=== PATIENT | male | born 1995 | race Caucasian/White ===

== ENCOUNTER 2025-05-04 15:29 | Outpatient (REF) | payer OTHER, SELFPAY ==
[2025-05-04 16:21] LABS: MANUAL DIFF FLAG NO
[2025-05-04 17:16] LABS: Hematocrit 43.2 % (42.0-52.0); Hemoglobin 14.7 g/dl (14.0-18.0); Imm Gran Abs Auto 0.02 X10*3/uL (0.00-0.03); Imm Gran Pct Auto 0.2 % (0.0-0.4); Lymphocytes Absolute Auto 2.5 X10*3/uL (1.2-4.9); Mean Corpuscular HGB Conc 34.0 g/dl (31.0-36.0); Mean Corpuscular Hemoglobin 31.0 pg (27.0-33.0); Mean Corpuscular Volume 91.1 fL (80.0-98.0); NRBC Abs Auto 0.000 X10*3/uL (0.0-0.012); NRBC Pct Auto 0.0 /100WBC (0.0-0.2); Platelet Count 239 X10*3/uL (160-400); Red Blood Count 4.74 X10*6/uL (4.60-5.80); White Blood Count 8.3 X10*3/uL (4.8-10.8)
[2025-05-04 17:47] LABS: Alanine Aminotransferase 31 U/L (0-40); Albumin Level 4.8 g/dL (3.5-5.0); Alkaline Phosphatase 63 U/L (39-117); Anion Gap 9 (12-20); Aspartate Amino Transferase 33 U/L (5-37); Blood Urea Nitrogen 12 mg/dL (9-16); Calcium 9.6 mg/dL (8.4-10.2); Carbon Dioxide 28 mmol/L (22-29); Chloride 107 mmol/L (96-108); Cholesterol 178 mg/dL (<200); Estimated Glomerular Filt Rate > 60; HDL Cholesterol 51 mg/dL (>40); Potassium 4.0 mmol/L (3.3-5.1); Sodium 140 mmol/L (135-145); Total Protein 7.5 g/dL (6.5-8.0); Triglycerides 160 mg/dL (<150)
[2025-05-05 05:33] LABS: Syphilis Screen Nonreactive (Nonreactive)
[2025-05-05 06:33] LABS: HBS Num1 4.02 mIU/mL (0-7.99); HBc Num1 0.07 S/CO (0.00-0.79); HBsAGNum1 0.36 S/CO (0.00-0.99); HIV Num 1 0.06 S/CO (0.00-0.99); Hepatitis A Antibody IgM 0.18 Index (0-0.79); Hepatitis B Surface Antigen Negative (Negative); ~HepC Num1 0.11 S/CO (0.00-0.79); ~Hepatitis A Antibody IgM Nonreactive (Nonreactive); ~Hepatitis B Surface Antibody NONREACTIVE (Nonreactive); ~Hepatitis C Antibody Nonreactive (Nonreactive)
== END 2025-05-04 15:30 | disposition home or self-care (01) ==
LOC: HO.LAB 15:29
PROVIDERS: PCP Student in an Organized Health Care Education/Training Program; Visit Provider Student in an Organized Health Care Education/Training Program
DX: Z00.00 Encounter for general adult medical examination without abnormal findings (principal); K13.79 Other lesions of oral mucosa; F10.10 Alcohol abuse, uncomplicated; Z87.891 Personal history of nicotine dependence
CPT/HCPCS: 36415; 80053; 80061; 82306; 82570; 83036; 84443; 85025; 86704; 86706; 86709; 86780; 86803; 87340; 87389; 96127; 99385

== ENCOUNTER 2025-05-04 15:29 | Outpatient (AMB) | payer OTHER, SELFPAY ==
--- NOTE | 2025-05-04 08:08 | A.OFFPC_ITS ---
Vital Signs 05/04/25 15:41 Height 6 ft 1.5 in Weight 217 lb 2 oz BMI 28.3 BP 128/80 Blood Pressure Location Lt brachial Position Sitting Pulse 85 Pulse Source Pulse Oximeter Temp 97.4 F Temp Source Temporal Artery Scan Pulse Oximetry (%) 98 Oxygen Delivery Method Room Air Intake Visit Reasons: Establish care Accompanied by: Self / Same As Patient Allergies No Known Allergies Allergy (Verified 05/04/25 08:09) Medication List - Last Reconciled 05/04/25 by Tucker Gilbert MD No Known Home Meds Tobacco use date assessed: 05/04/25 Dental Screening Dental Screen Date: 05/04/25 Did you have a dental visit in the last 12 months?: No Did you have a dental problem in the last 6 months where you did not have access to dental care?: No HPI HPI Comments History of Present Illness Details The patient is a 29 year old male presenting for an annual physical examination. 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 The patient reports a history of recurrent oral ulcers that have been present for a few years. He had a biopsy previously which was reported as a bad ulcer, possibly caused by stress, but the issue persists and he currently has an active lesion. He has seen multiple dentists in the past without resolution. The patient reports no significant past medical conditions or surgeries. He reports recent weight gain of approximately 15 pounds, which he attributes to drinking. He reports being physically active, primarily through walking several miles while fly fishing. The patient reports smoking marijuana and vaping when he consumes alcohol. He drinks 5 to 10 alcoholic beverages on weekends and acknowledges he needs to reduce his intake. He has a history of smoking and chewing tobacco when he was younger. He is currently unemployed but previously worked in construction and is experiencing stress related to changing careers. Medical History: - Recurrent oral ulcers, status post bio psy with non-specific findings. - Seasonal allergies Surgical History: - No history of surgeries. Medications: - Claritin or generic equivalent as need ed for seasonal allergies. Family History: - No known family history of diabetes, c ancers, or heart disease. Social History: - Employment: The patient is currently u nemployed and seeking a career change. He previously worked in construction. - Substance Use: He reports smoking surekha thomas and vaping when drinking alcohol. - Alcohol Use: He reports drinking 5-10 alcoholic beverages on weekends. - Tobacco Use: The patient has a history of smoking tobacco and using chewing tobacco in the past. - Illicit Drug Use: He denies the use of heroin or cocaine. - Relationship Status: The patient is no t . - Sexual Activity: The patient reports h e has not been sexually active for the past 4-5 months. - Exercise: He stays active by [employer], which involves walking several miles. - Stress: He reports stress related to h is career change and unemployment. [facility] Medical History (Updated 05/04/25 @ 16:02 by Tucker Gilbert MD) Alcohol abuse Recurrent oral ulcers Annual physical exam Family History (Updated 05/04/25 @ 15:47 by Diamond Whitley MA) Mother No problems noted. Father No problems noted. Social History Housing: House Patient Tobacco Use Status: Former Tobacco user e-Cigarette/Vaping Use: Former Use service: No Current occupational status: unemployed Cognitive needs: No Hearing needs: No Vision needs: No Questionnaire PHQ-9 Over the last 2 weeks, how often have you been bothered by any of the following problems? 1. Little interest or pleasure in doing things: not at all 2. Feeling down, depressed, or hopeless: not at all 3. Trouble falling or staying asleep, or sleeping too much: not at all 4. Feeling tired or having little energy: not at all 5. Poor appetite or overeating: not at all 6. Feeling bad about yourself - or that you are a failure or have let yourself or your family down: not at all 7. Trouble concentrating on things, such as reading the newspaper or watching television: not at all 8. Moving or speaking so slowly that other people could have noticed. Or the opposite - being so fidgety or restless that you have been moving around a lot more than usual: not at all 9. Thoughts that you would be better off or of hurting yourself in some way: not at all Total score: 0 Depression Screening Interpretation: Negative Depression Screening Done: Yes 16386 - PHQ-9 Billing: Yes Source: Developed by Drs. Carlos Helm, Namrata Pink, Kirit Blanchard and colleagues, with an educational bernard from [employer]. Thrive Questionnaire Date Thrive assessed: 05/04/25 I am a: Patient What is your living situation today?: I have a steady place to live Within the past 12 months, did the food you bought not last and you didn't have the money to get more?: Never true Within the past 12 months, did you worry whether your food would run out before you got money to buy more?: Never true Do you have trouble paying for medicines?: No Do you have trouble getting transportation to medical appointments?: No Do you have trouble paying your heating and electricity bill?: No Do you have trouble taking care of your child, family member or friend?: No Do you have trouble with day-to-day activities such as bathing, preparing meals, shopping, managing finances, etc.?: No Are you currently unemployed and looking for a job?: No Are you interested in more education?: No THRIVE Score: 0 AUDIT C Alcohol Use Questionnaire (AUDIT-C) 1. How often do you have a drink containing alcohol?: 2-4 times a month 2. How many drinks containing alcohol do you have on a typical day when you are drinking?: 10 or more 3. How often do you have six or more drinks on one occasion?: Weekly Total Score: 9 Score Reviewed/Action Taken: Yes NADER-7 AMB Questionnaire NADER-7 Date NADER - 7 assessed: 05/04/25 Feeling nervous, anxious, or on edge: 0 = Not at all Not being able to stop or control worryin = Not at all Worrying too much about different things: 0 = Not at all Trouble relaxin = Not at all Being so restless that it is hard to sit still: 0 = Not at all Becoming easily annoyed or irritable: 0 = Not at all Feeling afraid as if something awful might happen: 0 = Not at all Total NADER-7 score (0-4 normal; 5-9 mild; 10-14 moderate; 15-21 severe): 0 Source: Developed by Drs. Carlos Helm, Namrtaa Pink, Kirit Blanchard and colleagues, with an educational bernard from [employer]. NADER-7 Assessment Billing NADER-7 Assessment Tool: NADER-7 Assessment 24922 Review of Systems Narrative - General: Reports a 15-pound weight gain. - HEENT: Reports a history of recurrent oral ulcers. Denies vision changes. - Cardiovascular: Denies chest pain or palpitations. - Respiratory: Denies cough or shortness of breath. - Gastrointestinal: Reports no issues with bowel movements. - Genitourinary: Reports no issues with urination. - Neurological: Denies headaches. - Psychiatric: Reports good mood but notes stress related to life changes. - Allergic/Immunologic: Reports seasonal allergies. All systems reviewed & are unremarkable except as reviewed in HPI and above Physical exam (Primary Care) Vital Signs: Last Vital Signs Temp 97.4 F 05/04/25 15:41 Pulse 85 05/04/25 15:41 BP 128/80 05/04/25 15:41 Pulse Ox 98 05/04/25 15:41 Oxygen Delivery Method Room Air 05/04/25 15:41 BMI result Body Mass Index 28.3 Tobacco/Smoking Status: Tobacco use Status Tobacco use date assessed 05/04/25 05/04/25 08:10 Patient Tobacco Use Status Former Tobacco user 05/04/25 15:47 e-Cigarette/Vaping Use Former Use 05/04/25 15:47 PHQ-9: PHQ-9 Score PHQ-9: Total score 0 05/04/25 15:56 Depression Screening Interpretation: Negative Thrive Assessment: Date of Thrive Assessment Date Thrive assessed 05/04/25 05/04/25 08:10 Narrative General: +Alert and oriented, Well nourished, No acute distress. Eye: Pupils are equal, round and reactive to light, Intact accommodation, Extraocular movements are intact, Normal conjunctiva, Vision unchanged. HENT: Normocephalic, Atraumatic, Tympanic membranes are clear, Normal hearing, Oral mucosa is moist, No pharyngeal erythema, Ear canals patent, History of cold sores and ulcers in the mouth. Respiratory: Lungs CTA bilaterally, No wheeze, Respirations are non-labored. Cardiovascular: Regular rate, Regular rhythm, S1 auscultated, S2 auscultated, No murmur, Good pulses equal in all extremities, Normal peripheral perfusion, No edema. Gastrointestinal: Soft, Non-tender, Non-distended, Normal bowel sounds, No organomegaly. Musculoskeletal: Normal range of motion, Normal strength, No tenderness, No swelling, No deformity, Normal gait. Integumentary: Warm, Dry, [place], Intact. Neurologic: Alert, Oriented, Normal sensory, Normal motor function, No focal defects, Cranial Nerves II-XII are grossly intact, Normal deep tendon reflexes. Psychiatric: Cooperative, Appropriate mood & affect, Normal judgment. Coding Level of Care Code New Pt Prev Care 18-39yr(93387 Diagnoses Annual physical exam Z00.00 Recurrent oral ulcers K13.79 Alcohol abuse F10.10 Additional Codes PHQ-9 - 33410 - PHQ-9 Billing: Yes ([id number]) NADER-7 Assessment Billing - NADER-7 Assessment Tool: NADER-7 Assessment 69206 ([id number]) Assessment & Plan Assessment & Plan (1) Annual physical exam: Comment: - Assessment: The patient is a young and healthy individual presenting for an annual physical exam. - Plan: Ordered comprehensive baseline blood work including electrolytes, cholesterol, sugars, thyroid, vitamin D, and screening for syphilis, hepatitis, and HIV. - Recommended receiving the annual influenza vaccine. - Advised to continue staying active. - Recommended a follow-up visit for an annual physical next year. Code(s): Z00.00 - Encounter for general adult medical examination without abnormal findings Category: Medical (2) Recurrent oral ulcers: Comment: - Assessment: The patient reports a history of recurrent oral ulcers. - These may be exacerbated by irritants such as alcohol, vaping, and spicy foods. - Plan: Advised the patient to find a dentist for further evaluation. - Recommended avoiding potential irritants. - An in-office examination of the ulcer was performed. Code(s): K13.79 - Other lesions of oral mucosa Category: Medical (3) Alcohol abuse: Comment: - Assessment: The patient's consumption of 5-10 drinks on weekends is classified as heavy alcohol use approaching abuse, which can also act as an irritant for his oral ulcers. - Plan: Counseled the patient on the need to reduce his alcohol intake. - The patient reports he is already working on cutting down. Code(s): F10.10 - Alcohol abuse, uncomplicated Category: Social Hx Plan: Health Maintenance: - Comprehensive baseline blood work ordered, including calcium, electrolytes, cholesterol, sugars, thyroid, vitamin D, syphilis, hepatitis, and HIV screening. - Recommended annual influenza vaccination. - Counseled on reducing heavy weekend alcohol consumption. - Advised cessation of vaping. - Encouraged continued physical activity to maintain health. - Recommended annual physical examinations for ongoing health monitoring. Patient was informed and verbally consented to the use of an ambient scribe for clinic note documentation during this visit. Plan I informed the patient that he appears to be young and healthy, and we will treat this visit as his annual physical. I explained that I will be ordering a comprehensive set of baseline blood tests, including screening for cholesterol, diabetes, thyroid issues, and infectious diseases like syphilis, hepatitis, and HIV, as per standard guidelines. I instructed him to go to the hospital lab for the blood draw, where his details are already in the system. I discussed his recurrent oral ulcer, advising him to see a dentist for evaluation, and also to cut out potential irritants like spicy foods, vaping, and alcohol. I counseled him that his weekend alcohol intake of 5-10 drinks is a lot and is considered borderline abuse, which could also be aggravating his ulcer. I recommended he get the annual flu shot, which he can obtain from any pharmacy. We agreed that follow-up should be on a yearly basis, and I advised him to schedule his next physical in about a year. Orders: Orders Comprehensive Met. Panel Today Z00.00 - Encounter for general adult medical examination without abnormal findings Hepatitis A,B,C Profile Today Z00.00 - Encounter for general adult medical examination without abnormal findings HIV Ab/Ag Today Z00.00 - Encounter for general adult medical examination without abnormal findings Lipid Panel Today Z00.00 - Encounter for general adult medical examination without abnormal findings Syphilis Screen Today Z00.00 - Encounter for general adult medical examination without abnormal findings Vitamin D 25-OH Total Today Z00.00 - Encounter for general adult medical examination without abnormal findings Complete Blood Count Auto Diff Today Z00.00 - Encounter for general adult medical examination without abnormal findings Hemoglobin A1c Today Z00.00 - Encounter for general adult medical examination without abnormal findings TSH reflex Free T4 Today Z00.00 - Encounter for general adult medical examination without abnormal findings Microalbumin, Random (w Creat) Today Z00.00 - Encounter for general adult medical examination without abnormal findings Patient Instructions: - Please go to the hospital lab to get your blood work done. They already have your information. - We will contact you by phone if any of your lab results are concerning. - Find a dentist to have the recurring sore in your mouth examined. - Reduce your alcohol intake, as your current amount is very high. - Stop vaping and avoid other irritants that may be making the sore worse. - Get your annual flu shot, which you can get at any pharmacy. - Continue to stay physically active. - Schedule an appointment for your next annual physical exam in one year.
[2025-05-04 15:41] VITALS: BP 128/80; PULSE 85; TEMP 36.3; O2SAT 98; BMI 28.3
== END 2025-05-04 16:04 | disposition home or self-care (01) ==
LOC: HO.HMCHD 15:29
PROVIDERS: PCP Student in an Organized Health Care Education/Training Program; Visit Provider Student in an Organized Health Care Education/Training Program
DX: Z00.00 Encounter for general adult medical examination without abnormal findings (principal); K13.79 Other lesions of oral mucosa; F10.10 Alcohol abuse, uncomplicated